=== PATIENT | female | born 1965 | race Caucasian/White ===

== ENCOUNTER 2017-11-29 07:45 | Emergency (ER) | payer OTHER ==
--- NOTE | 2017-11-29 07:53 | EDPHY ---
H & P Time Seen by Provider: 11/29/17 07:53 HPI/ROS: CHIEF COMPLAINT: Lower abdominal pain HISTORY OF PRESENT ILLNESS: [place] fine yesterday awakened at 3:00 a.m. With pain which has now gotten more severe. Patient says it is low down in her abdomen suprapubic, says is mostly in the middle but says if she had to pick a side she would state it is on the right. Not better worse with movement. Not better with Tums. Had a small bowel movement, no urinary symptoms. She did have nausea and vomiting once. She tells me she thinks it is similar to previous menstrual cramps in quality but just dramatically worse. No bleeding and no recent injury or trauma. REVIEW OF SYSTEMS: Eye: no change in vision ENT: no sore throat Cardiac: no chest pain or syncope Pulmonary: no cough or SOB Abdomen: HPI Musculoskeletal: no back pain Skin: no rash Neuro: no headache Constitutional: no fever : no urinary symptoms A comprehensive 10 point review of systems is otherwise negative aside from elements mentioned in the history of present illness. PAST MEDICAL HISTORY: Wrist surgery and Social history: Driven here by her General Appearance: Alert and conversant, cooperative. She appears uncomfortable but is moving around on the bed trying to get comfortable. Eyes: No scleral icterus. ENT, Mouth: Normal mucous membranes. Respiratory: Normal respiratory effort, breath sounds equal, lungs are clear to auscultation. Cardiovascular: Regular rate and rhythm. Gastrointestinal: Patient is very slight suprapubic tenderness. No hernia. No McBurney's point tenderness guarding or rebound or peritoneal signs. Neurological: Alert, face symmetric, normal motor and sensory in extremities. Skin: Warm and dry, no rashes. Musculoskeletal: No peripheral edema. Psychiatric: Not agitated. Emergency Department course/MDM: She does not have severe tenderness and is moving around in the bed, I think that appendicitis or colitis or intestinal perforation or bowel obstruction would be less likely. Considered renal colic but she really volunteers the pain is mostly in the middle. Appendicitis also considered because of the lower possibly right location of the pain. Plan for CBC, test, urinalysis. Fentanyl 100 mcg IV and Zofran 4 mg IV for pain and vomiting. Ultrasound discussed and consented, will look at appendix, hydronephrosis on the right side, gynecologic. 945: partially collapsed cyst left with free fluid, [place]. No hydronephrosis, and appendix not visualized. 1012: Results discussed, likely diagnosis of ovarian cyst, oral ibuprofen and discharge, patient states that she is comfortable with that plan. Smoking Status: Never smoked Constitutional: Initial Vital Signs Temperature (C) 37.2 C 11/29/17 07:49 Heart Rate 67 11/29/17 07:49 Respiratory Rate 16 11/29/17 07:49 Blood Pressure 117/73 11/29/17 07:49 O2 Sat (%) 99 11/29/17 07:49 O2 Delivery Mode Room Air O2 (L/minute) 2 Allergies/Adverse Reactions: No Known Allergies Allergy (Unverified 11/29/17 07:49) Home Medications: Medication Instructions Recorded Ondansetron Odt [Zofran Odt] 4 mg PO Q4PRN #6 tab 11/29/17 Medical Decision Making - Diagnostics Imaging Results: Imaging Impressions Abdomen Ultrasound 11/29/17 08:07 Impression: 1. Appendix not visualized. 2. Minimal free fluid in the right lower quadrant. Findings and recommendations discussed with Emergency Department physician, Etienne Somers, at 0942 hours, 11/29/2017. Final report concurs with initial preliminary interpretation. Abdomen/Pelvis Ultrasound 11/29/17 08:07 Impression: 1. No hydronephrosis. 2. No shadowing renal calculi. 3. No definite bladder calculi. 4. Incidental benign splenic cyst. Findings and recommendations discussed with Emergency Department physician, Etienne Somers, at 0944 hours, 11/29/2017. Final report concurs with initial preliminary interpretation. Pelvic/Renal Ultrasound 11/29/17 08:07 Impression: 1. No ovarian torsion. 2. Small amount of free fluid in the pelvis with a partially collapsed left ovarian 1.4 x 1.4 x 1.2 cm cyst, possibly a corpus luteum cyst. 3. No suspicious adnexal masses. Findings and recommendations discussed with Emergency Department physician, Etienne Somers, at 0944 hours, 11/29/2017. Final report concurs with initial preliminary interpretation. Imaging: Discussed imaging studies w/ manager call Radiologist Differential Diagnosis: Differential considered including but not limited to PID, ovarian cyst or torsion, appendicitis, UTI or renal colic - Data Points Laboratory Results: Laboratory Results 11/29/17 08:09 11/29/17 08:09 11/29/17 11/29/17 11/29/17 10:30 08:09 08:09 WBC RBC Hgb Hct MCV MCH MCHC RDW Plt Count MPV Neut % (Auto) Lymph % (Auto) [place] % (Auto) Eos % (Auto) Baso % (Auto) Nucleat RBC Rel Count Absolute Neuts (auto) Absolute Lymphs (auto) Absolute Monos (auto) Absolute Eos (auto) Absolute Basos (auto) Absolute Nucleated RBC Immature Gran % Immature Gran # Sodium 139 mEq/L mEq/L (135-145) Potassium 4.1 mEq/L mEq/L (3.3-5.0) Chloride 103 mEq/L mEq/L (97-110) Carbon Dioxide 28 mEq/l mEq/l (22-31) Anion Gap 8 mEq/L mEq/L (8-16) BUN 15 mg/dL mg/dL (7-23) Creatinine 0.9 mg/dL mg/dL (0.6-1.0) Estimated GFR > 60 Glucose 95 mg/dL mg/dL (70-100) Calcium 10.2 mg/dL mg/dL (8.5-10.4) Beta HCG, Qual NEGATIVE Urine Color YELLOW Urine Appearance MODERATELY TURBID Urine pH 7.0 (5.0-7.5) Ur Specific [place] 1.018 (1.002-1.030) Urine Protein NEGATIVE (NEGATIVE) Urine Ketones NEGATIVE (NEGATIVE) Urine Blood NEGATIVE (NEGATIVE) Urine Nitrate NEGATIVE (NEGATIVE) Urine Bilirubin NEGATIVE (NEGATIVE) Urine Urobilinogen NEGATIVE EU EU (0.2-1.0) Ur Leukocyte Esterase NEGATIVE (NEGATIVE) Urine Glucose NEGATIVE (NEGATIVE) 11/29/17 08:09 WBC 7.06 10^3/uL 10^3/uL (3.80-9.50) RBC 4.92 10^6/uL 10^6/uL (4.18-5.33) Hgb 14.9 g/dL g/dL (12.6-16.3) Hct 45.0 % % (38.0-47.0) MCV 91.5 fL fL (81.5-99.8) MCH 30.3 pg pg (27.9-34.1) MCHC 33.1 g/dL g/dL (32.4-36.7) RDW 13.2 % % (11.5-15.2) Plt Count 282 10^3/uL 10^3/uL (150-400) MPV 9.1 fL fL (8.7-11.7) Neut % (Auto) 77.1 % H % (39.3-74.2) Lymph % (Auto) 15.7 % % (15.0-45.0) [place] % (Auto) 5.8 % % (4.5-13.0) Eos % (Auto) 0.8 % % (0.6-7.6) Baso % (Auto) 0.3 % % (0.3-1.7) Nucleat RBC Rel Count 0.0 % % (0.0-0.2) Absolute Neuts (auto) 5.44 10^3/uL 10^3/uL (1.70-6.50) Absolute Lymphs (auto) 1.11 10^3/uL 10^3/uL (1.00-3.00) Absolute Monos (auto) 0.41 10^3/uL 10^3/uL (0.30-0.80) Absolute Eos (auto) 0.06 10^3/uL 10^3/uL (0.03-0.40) Absolute Basos (auto) 0.02 10^3/uL 10^3/uL (0.02-0.10) Absolute Nucleated RBC 0.00 10^3/uL 10^3/uL (0-0.01) Immature Gran % 0.3 % % (0.0-1.1) Immature Gran # 0.02 10^3/uL 10^3/uL (0.00-0.10) Sodium Potassium Chloride Carbon Dioxide Anion Gap BUN Creatinine Estimated GFR Glucose Calcium Beta HCG, Qual Urine Color Urine Appearance Urine pH Ur Specific [place] Urine Protein Urine Ketones Urine Blood Urine Nitrate Urine Bilirubin Urine Urobilinogen Ur Leukocyte Esterase Urine Glucose Medications Given: Discontinued Medications Fentanyl (Sublimaze) 100 mcg IVP EDNOW ONE Stop: 11/29/17 08:05 Last Admin: 11/29/17 08:07 Dose: 100 mcg Fentanyl (Sublimaze) 100 mcg IVP EDNOW ONE Stop: 11/29/17 09:33 Last Admin: 11/29/17 09:33 Dose: 100 mcg Sodium Chloride (Ns) 1,000 mls @ 0 mls/hr IV EDNOW ONE; Wide Open PRN Reason: Protocol Stop: 11/29/17 08:05 Last Admin: 11/29/17 08:07 Dose: 1,000 mls Sodium Chloride (Ns) 1,000 mls @ 0 mls/hr IV EDNOW ONE; Wide Open PRN Reason: Protocol Stop: 11/29/17 09:38 Last Admin: 11/29/17 10:59 Dose: 1,000 mls Ibuprofen (Motrin) 600 mg PO EDNOW ONE Stop: 11/29/17 10:14 Last Admin: 11/29/17 10:59 Dose: 600 mg Ondansetron HCl (Zofran) 4 mg IVP EDNOW ONE Stop: 11/29/17 08:05 Last Admin: 11/29/17 08:07 Dose: 4 mg Ondansetron HCl (Zofran) 4 mg IVP EDNOW ONE Stop: 11/29/17 09:33 Last Admin: 11/29/17 09:33 Dose: 4 mg Departure - Departure Disposition: Home, Routine, Self-Care Clinical Impression: Ovarian cyst, left Condition: Good Instructions: Ovarian Cyst (ED) Additional Instructions: Ibuprofen 600 mg by mouth every 8 hr for the next 48 hr. Return for worsening or severe pain, fever, vomiting. Referrals: SUNITA PRABHAKAR [Primary Care Provider] - As per Instructions Marycruz Bocanegra MD [Medical Doctor] - 2-3 days, call for appt. Prescriptions: Ondansetron Odt [Zofran Odt] 4 mg PO Q4PRN #6 tab
[2017-11-29] MEDS ORDERED: NS 1,000 ML IV ONE ×2 (08:04→09:37)
[2017-11-29] MEDS ORDERED: fentaNYL 100 MCG/2 ML INJ IVP ONE ×2 (08:04→09:32)
[2017-11-29] MEDS ORDERED: ONDANSETRON 4 MG/2 ML VIAL IVP ONE ×2 (08:04→09:32)
[2017-11-29 08:38] LABS: PLATELET COUNT 282 10^3/uL (150-400)
[2017-11-29] MEDS ORDERED: fentaNYL 100 MCG/2 ML INJ ONE (09:25)
[2017-11-29] MEDS ORDERED: ONDANSETRON 4 MG/2 ML VIAL ONE (09:25)
[2017-11-29] MEDS ORDERED: IBUPROFEN 600 MG TAB PO ONE (10:13)
[2017-11-29 10:58] VITALS: BP 84/56
== END 2017-11-29 11:00 | disposition home or self-care (01) ==
DX: N83.202 Unspecified ovarian cyst, left side (principal)
CPT/HCPCS: 96374; J2405; J3010